=== PATIENT | male | born 2000 | race Caucasian/White ===

== ENCOUNTER 2024-03-30 22:02 | Emergency (ER) | payer OTHER ==
[~2024-03-30] VITALS: Ht 185.4 cm; Wt 108.9 kg
[2024-03-30] MEDS ORDERED: Tdap Vaccine 0.5 ML SYR (Adult Vaccine) IM ONE (22:35)
[2024-03-30] MEDS ORDERED: Ondansetron Hydrochloride 4 MG/2 ML VIAL IV ONE (22:35)
[2024-03-30] MEDS ORDERED: CEPHALEXIN 500 MG CAP PO ONE (22:35)
[2024-03-30] MEDS ORDERED: MORPHINE Sulfate 2 MG/ML SYR IV ONE (22:35)
== END 2024-03-30 23:30 | disposition short-term general hospital (02) ==
LOC: ED 22:02
DX: S81.811A Laceration without foreign body, right lower leg, initial encounter (principal); W26.8XXA Contact with other sharp object(s), not elsewhere classified, initial encounter; Y93.I9 Activity, other involving external motion; Y92.410 Unspecified street and highway as the place of occurrence of the external cause; Y99.8 Other external cause status